=== PATIENT | male | born 1995 | race Caucasian/White ===

== ENCOUNTER → 2018-04-10 | Day surgery (SDC) | payer OTHER ==
[~2018-04-10] MED LIST: Lactated Ringer's 500 ML IV ONE; Propofol 10 mg/ml Inj (20 ML) ONE
[2018-04-10 07:45] VITALS: BMI 20.4
[2018-04-10 08:02] VITALS: TEMP 97.8
[2018-04-10 09:31] VITALS: BP 101/48; PULSE 59; RESP 20; O2SAT 99
== END | disposition home or self-care (01) ==
LOC: H.ENDO 07:03
PROVIDERS: ATTEND Internal Medicine Gastroenterology
DX: K31.89 Other diseases of stomach and duodenum (principal); R10.13 Epigastric pain; K29.80 Duodenitis without bleeding
CPT/HCPCS: 43239; 88305; J2001; J2704; J7120